=== PATIENT | female | born 1990 | race Two or more races ===

== ENCOUNTER 2019-02-08 06:39 | Inpatient (IN) | payer SELFPAY ==
[~2019-02-08] VITALS: Ht 156.2 cm; Wt 65.3 kg
[2019-02-08] VITALS (7 sets, daily range): BP systolic 99–125; BP diastolic 52–74
[2019-02-08] MEDS ORDERED: IV RINGERS,LACTATED 1000ML 1,000 ML IV SCH (06:41)
[2019-02-08] MEDS ORDERED: CITRIC ACID/SODIUM CITRATE 30 ML SOLUTION. PO ONE (07:00)
--- NOTE | 2019-02-08 07:39 | PDOC1 ---
OB - History Hx of Present Care: Good Care Ultrasounds: Normal mid trimester US Obstetrical Complications: None Medical Complications: None Past Family/Social History * Past Medical, Surgical, Family and Obstetric Histories reviewed from chart. Rubella: Immune RPR/VDRL: Negative GBS Status: Negative HBsAG: Negative OB - Chief Complaint & HPI Date of Admission: Date of Admission: Feb 08, 2019 at 06:39 Chief Complaint/History : 4 Para: 3 EGA: 39 Reason for admission: section Indication for : desires repeat Admission Nurse Assessment Rev: Yes OB - Admission Exam Physical Exam HEENT: Normal Heart: Regular Rate Lungs: Clear Abdomen: Gravid, Non tender, Soft Extremities: Edema Reflexes: Normal Cervical Dilatation: Fingertip Effacement: 25% Station: -3 Membranes: Intact Heart Rate: Normal Accelerations: Accelerations Present Decelerations: No decelerations Contractions on Admission: >10 Minutes Apart Text A: 39 wks IUP Previous c/s P: Admit for repeat c/s VERNELL AYALA Jr, MD Feb 08, 2019 07:39
[2019-02-08 07:41] LABS: HEMATOCRIT 35.9 % (36.0-47.0); HEMOGLOBIN 12.1 g/dL (12.0-15.5); RED BLOOD COUNT 3.89 x10^6/uL (3.50-5.40); RED CELL DISTRIBUTION WIDTH 14.1 % (11.5-14.5); WHITE BLOOD COUNT 9.9 x10^3/uL (4.0-11.0)
[2019-02-08] MEDS ORDERED: SIMETHICONE 80 MG TAB.CHEW PO PRN (07:45)
[2019-02-08] MEDS ORDERED: ONDANSETRON PF 4 MG/2 ML VIAL. IV PRN (07:45)
[2019-02-08] MEDS ORDERED: OXYTOCIN 30 UNIT/500 ML PREMIX 500 ML IV PRN (07:45)
[2019-02-08] MEDS ORDERED: DOCUSATE SODIUM 100 MG CAPSULE. PO PRN (07:45)
[2019-02-08] MEDS ORDERED: 0.9 % SODIUM CHLORIDE 10 ML DISP.SYRIN. IV PRN (07:45)
[2019-02-08] MEDS ORDERED: diphenhydrAMINE ORAL ELIXIR 12.5 MG/5 ML ML PO PRN (07:45)
[2019-02-08] MEDS ORDERED: ZOLPIDEM 5 MG TABLET. PO PRN (07:45)
[2019-02-08] MEDS ORDERED: MAG HYDROX/ALUMINUM HYD/SIMETH 30 ML ORAL.SUSP PO PRN (07:45)
[2019-02-08] MEDS ORDERED: MORPHINE PF 10 MG/10 ML AMPUL. ONE (09:01)
[2019-02-08] MEDS ORDERED: fentaNYL PF VIAL 100 MCG/2 ML VIAL ONE (09:01)
[2019-02-08] MEDS ORDERED: ePHEDrine PF IN SALINE 50 MG/10 ML SYRINGE. IV ONE (09:02)
[2019-02-08] MEDS ORDERED: OXYTOCIN 10 UNIT/ML VIAL. ONE (09:02)
[2019-02-08] MEDS ORDERED: DEXAMETHASONE SOD PHOS 4 MG/ML VIAL ONE (09:32)
--- NOTE | 2019-02-08 10:03 | PDOC4 ---
OB Operative Note Date: Feb 08, 2019 PRE OP DIAGNOSIS: Previoujs C- section POST OP DIAGNOSIS: Previous C- section OPERATION PERFORMED: R [facility] Surgeon Dr. Marrero Anesthesia: Regional (Spinal) Blood Loss 500 ml Specimen placenta and OB Findings: Position (Vertex), Sex (Female), (8/9), Weight (6 Lb 6 oz), Nuchal Cord (x1) Complications none Additional Remarks pt. stable. VERNELL MARRERO Jr, MD Feb 08, 2019 10:03
--- NOTE | 2019-02-08 10:38 | OP ---
DATE OF SURGERY: PREOPERATIVE DIAGNOSES: 1. A 39 weeks intrauterine . 2. Previous . POSTOPERATIVE DIAGNOSES: 1. A 39 weeks intrauterine . 2. Previous . PROCEDURE: Repeat low transverse section. SURGEON: Vernell Marrero MD [employer] AND CRM: Cassie. ANESTHESIA: Spinal. ESTIMATED BLOOD LOSS: 500 mL. COMPLICATIONS: None. FINDINGS: Viable female , Apgars 8 and 9, weight 6 pounds 6 ounces, nuchal cord x 1, 3-vessel cord, placenta delivered manually intact. SUMMARY: A 28-year-old female who presented at 39 weeks' gestation with history of for repeat section. She was counseled on risks, benefits and expectations and voiced clear understanding to proceed. DESCRIPTION OF PROCEDURE: The patient was taken to surgery suite and placed in dorsal supine position. She was prepped with ChloraPrep and draped in sterile fashion. After adequate anesthesia, Pfannenstiel skin incision was made with scalpel down to and through the fascia. Fascia was extended laterally using curved House scissors. The superior edge of the fascia was grasped with two Trell clamps and dissected free of the abdominal rectus muscles using blunt dissection along with Bovie cautery. The same process took place inferiorly. The abdominal rectus muscles were dissected bluntly at the midline. Peritoneum was grasped with 2 hemostats, entered sharply with Metzenbaum scissors. This incision was extended superiorly as well as inferiorly. The Shlomo ring retractor was placed. Bladder flap was created with Metzenbaum scissors and [place] pickups. A low transverse hysterotomy incision with scalpel down to the amniotic sac. Hysterotomy incision was extended laterally and superiorly digitally. Amniotomy was performed with Allis clamp. With the fundal pressure, the infant's head was delivered in a smooth atraumatic manner. Nuchal cord x 1 was visualized and reduced. With additional fundal pressure, the anterior shoulder was delivered followed by posterior shoulder and rest of female infant was delivered. was suctioned with bulb syringe orally and nasally. Umbilical cord was clamped twice and cut. Viable female infant was handed to waiting nursing staff. Umbilical cord blood was then obtained, 3-vessel cord. Placenta was delivered manually intact. The uterus was then exteriorized and cleared of clot and debris with a moist lap. Hysterotomy incision was then reapproximated using #1 Vicryl suture in a running locked fashion and imbricated layer of #1 Vicryl suture was utilized for better hemostasis. Uterus palpated firm. Fallopian tubes and ovaries appeared normal bilaterally. Posterior cul-de-sac was cleared of clot and debris with moist lap. Uterus was then returned to the abdomen. Pericolic gutters were cleared of clot and debris with moist lap. Hysterotomy incision was reviewed again and was hemostatic. The Shlomo ring retractor was removed. Peritoneum was reapproximated using #1 Vicryl suture in running fashion. Fascia was reapproximated using Stratafix in a running fashion. Skin was reapproximated using 4-0 Vicryl suture in subcuticular manner. The patient tolerated the procedure well and was taken to recovery room in stable condition. Sponge and needle count correct x 3. VERNELL MARRERO MD DR: MATTHEW/hayley JOB#: [id number] / [id number]
[2019-02-08] MEDS: IV RINGERS,LACTATED 1000ML 1,000 ML IV SCH ×3 (11:26→22:41)
[2019-02-08] MEDS: KETOROLAC 30 MG/ML VIAL. IV PRN ×2 (11:47→20:14)
[2019-02-08] MEDS: FERROUS SULFATE 325 MG TABLET. PO SCH (17:00)
[2019-02-09] VITALS: BP 91/49
[2019-02-09] MEDS: IV RINGERS,LACTATED 1000ML 1,000 ML IV SCH ×3 (01:38→22:41)
[2019-02-09 03:56] LABS: BASO % 0 % (0-3); EOS % 0 % (0-3); HEMATOCRIT 28.2 % (36.0-47.0); HEMOGLOBIN 9.5 g/dL (12.0-15.5); LYMPH # 2.1 x10^3/uL (1.0-4.8); LYMPH % 22 % (24-48); MEAN CORPUSCULAR HEMOGLOBIN 31 pg (25-35); MEAN CORPUSCULAR HGB CONC 34 g/dL (31-37); MEAN CORPUSCULAR VOLUME 93 fL (79-100); MONO # 1.1 x10^3/uL (0.0-1.1); MONO % 11 % (0-9); NEUT # 6.3 x10^3/uL (1.8-7.7); NEUT % 67 % (31-73); PLATELET COUNT 203 x10^3/uL (140-400); RED BLOOD COUNT 3.03 x10^6/uL (3.50-5.40); RED CELL DISTRIBUTION WIDTH 14.2 % (11.5-14.5); WHITE BLOOD COUNT 9.4 x10^3/uL (4.0-11.0)
[2019-02-09 04:00] VITALS: BP 95/40
[2019-02-09] MEDS: IBUPROFEN 400 MG TABLET. PO PRN ×2 (05:31→19:33)
[2019-02-09] MEDS: FERROUS SULFATE 325 MG TABLET. PO SCH ×2 (08:13→17:00)
[2019-02-09 09:06] VITALS: BP 89/47
[2019-02-09] MEDS: oxyCODONE/APAP 5/325 1 TAB TABLET PO PRN ×2 (12:18→18:29)
--- NOTE | 2019-02-09 13:05 | PDOC ---
OB Progress Note Date of Service 02/09/19 Time of Evaluation 1255 Notes Pt. feeling well. Pain controlled. No complaints. Lab Laboratory Tests Test 02/08/19 07:30 02/09/19 03:00 White Blood Count 9.9 x10^3/uL (4.0-11.0) 9.4 x10^3/uL (4.0-11.0) Red Blood Count 3.89 x10^6/uL (3.50-5.40) 3.03 x10^6/uL (3.50-5.40) Hemoglobin 12.1 g/dL (12.0-15.5) 9.5 g/dL (12.0-15.5) Hematocrit 35.9 % (36.0-47.0) 28.2 % (36.0-47.0) Mean Corpuscular Volume 92 fL (79-100) 93 fL (79-100) Mean Corpuscular Hemoglobin 31 pg (25-35) 31 pg (25-35) Mean Corpuscular Hemoglobin Concent 34 g/dL (31-37) 34 g/dL (31-37) Red Cell Distribution Width 14.1 % (11.5-14.5) 14.2 % (11.5-14.5) Platelet Count 261 x10^3/uL (140-400) 203 x10^3/uL (140-400) Treponema pallidum Antibody Nonreactive (Nonreactive) Neutrophils (%) (Auto) 67 % (31-73) Lymphocytes (%) (Auto) 22 % (24-48) Monocytes (%) (Auto) 11 % (0-9) Eosinophils (%) (Auto) 0 % (0-3) Basophils (%) (Auto) 0 % (0-3) Neutrophils # (Auto) 6.3 x10^3/uL (1.8-7.7) Lymphocytes # (Auto) 2.1 x10^3/uL (1.0-4.8) Monocytes # (Auto) 1.1 x10^3/uL (0.0-1.1) Eosinophils # (Auto) 0.0 x10^3/uL (0.0-0.7) Basophils # (Auto) 0.0 x10^3/uL (0.0-0.2) Laboratory Tests Test 02/09/19 03:00 White Blood Count 9.4 x10^3/uL (4.0-11.0) Red Blood Count 3.03 x10^6/uL (3.50-5.40) Hemoglobin 9.5 g/dL (12.0-15.5) Hematocrit 28.2 % (36.0-47.0) Mean Corpuscular Volume 93 fL (79-100) Mean Corpuscular Hemoglobin 31 pg (25-35) Mean Corpuscular Hemoglobin Concent 34 g/dL (31-37) Red Cell Distribution Width 14.2 % (11.5-14.5) Platelet Count 203 x10^3/uL (140-400) Neutrophils (%) (Auto) 67 % (31-73) Lymphocytes (%) (Auto) 22 % (24-48) Monocytes (%) (Auto) 11 % (0-9) Eosinophils (%) (Auto) 0 % (0-3) Basophils (%) (Auto) 0 % (0-3) Neutrophils # (Auto) 6.3 x10^3/uL (1.8-7.7) Lymphocytes # (Auto) 2.1 x10^3/uL (1.0-4.8) Monocytes # (Auto) 1.1 x10^3/uL (0.0-1.1) Eosinophils # (Auto) 0.0 x10^3/uL (0.0-0.7) Basophils # (Auto) 0.0 x10^3/uL (0.0-0.2) Medications Current Medications Ringer's Solution 1,000 ml @ 1,000 mls/hr Q1H IV Last administered on 02/08/19at 07:44; Start 02/08/19 at 06:41; Stop 02/08/19 at 07:40; Status DC Ringer's Solution 1,000 ml @ 125 mls/hr Q8H IV Last administered on 02/09/19at 01:38; Start 02/08/19 at 06:41 Cefazolin Sodium/ Dextrose 50 ml @ 100 mls/hr 1X ONCE IV ; Start 02/08/19 at 07:00; Stop 02/08/19 at 07:29; Status DC Citric Acid/ Sodium Citrate (Bicitra) 30 ml 1X ONCE PO ; Start 02/08/19 at 07:00; Stop 02/08/19 at 07:01; Status DC Sodium Chloride (Normal Saline Flush) 3 ml QSHIFT PRN IV AFTER MEDS AND BLOOD DRAWS; Start 02/08/19 at 07:45 Oxytocin/Sodium Chloride 500 ml @ 125 mls/hr CONT PRN IV EXCESSIVE POST- BLEEDING; Start 02/08/19 at 07:45; Stop 02/08/19 at 15:44; Status DC Ibuprofen (Motrin) 800 mg PRN Q4HRS PRN PO INFLAMMATION Last administered on 02/09/19at 05:31; Start 02/08/19 at 07:45 Ondansetron HCl (Zofran) 4 mg PRN Q6HRS PRN IV NAUSEA/VOMITING; Start 02/08/19 at 07:45 Docusate Sodium (Colace) 100 mg PRN BID PRN PO CONSTIPATION; Start 02/08/19 at 07:45 Al Hydroxide/Mg Hydroxide (Mylanta Plus Xs) 30 ml PRN Q4HRS PRN PO HEARTBURN / GAS; Start 02/08/19 at 07:45 Simethicone (Gas-X) 80 mg PRN AFTMEALHC PRN PO GAS / BLOATING; Start 02/08/19 at 07:45 Diphenhydramine HCl (Benadryl Oral Elixir) 12.5 mg PRN Q6HRS PRN PO ITCHING; Start 02/08/19 at 07:45 Ferrous Sulfate (Feosol) 325 mg BIDWMEALS PO Last administered on 02/09/19at 0 8:13; Start 02/08/19 at 08:00 Zolpidem Tartrate (Ambien) 5 mg PRN QHS PRN PO INSOMNIA, MAY REPEAT X1; Start 02/08/19 at 07:45 Oxycodone/ Acetaminophen (Percocet 5/325) 2 tab PRN Q4HRS PRN PO MODERATE PAIN, SEVERE PAIN Last administered on 02/09/19at 12:18; Start 02/08/19 at 07:45 Ketorolac Tromethamine (Toradol 30mg Vial) 30 mg PRN Q6HRS PRN IV PAIN Last administered on 02/08/19at 20:14; Start 02/08/19 at 07:45; Stop 02/13/19 at 07:44 Fentanyl Citrate (Fentanyl 2ml Vial) 100 mcg STK-MED ONCE .ROUTE ; Start 02/08/19 at 09:01; Stop 02/08/19 at 09:01; Status DC Morphine Sulfate (Morphine Preservative Free) 10 mg STK-MED ONCE .ROUTE ; Start 02/08/19 at 09:01; Stop 02/08/19 at 09:01; Status DC Ephedrine Sulfate (ePHEDrine PF IN SALINE SYRINGE) 50 mg STK-MED ONCE IV ; Start 02/08/19 at 09:02; Stop 02/08/19 at 09:02; Status DC Oxytocin (Pitocin) 10 unit STK-MED ONCE .ROUTE ; Start 02/08/19 at 09:02; Stop 02/08/19 at 09:03; Status DC Dexamethasone Sodium Phosphate (Decadron) 4 mg STK-MED ONCE .ROUTE ; Start 02/08/19 at 09:32; Stop 02/08/19 at 09:32; Status DC Exam Abd: soft, mild tenderness, fundus firm Incision site: clean, dry and intact Assessment POD#1 s/p repeat c/s Plan of Care: Continue current Tx, Mgmt VERNELL AYALA Jr, MD Feb 09, 2019 13:04
[2019-02-09 20:08] VITALS: BP 102/68
[2019-02-09 23:01] VITALS: BP 106/69
[2019-02-10] MEDS: oxyCODONE/APAP 5/325 1 TAB TABLET PO PRN ×3 (04:56→23:45)
[2019-02-10 05:22] VITALS: BP 109/62
[2019-02-10 07:30] VITALS: BP 104/66
[2019-02-10] MEDS: FERROUS SULFATE 325 MG TABLET. PO SCH ×2 (08:37→17:50)
[2019-02-10 12:00] VITALS: BP 101/63
[2019-02-10] MEDS: IBUPROFEN 400 MG TABLET. PO PRN (15:00)
[2019-02-10 16:10] VITALS: BP 114/48
--- NOTE | 2019-02-10 17:15 | PDOC ---
OB Progress Note Date of Service 02/10/19 Time of Evaluation 2975 Notes Pt. feeling well. No complaints. Lab Laboratory Tests Test 02/09/19 03:00 White Blood Count 9.4 x10^3/uL (4.0-11.0) Red Blood Count 3.03 x10^6/uL (3.50-5.40) Hemoglobin 9.5 g/dL (12.0-15.5) Hematocrit 28.2 % (36.0-47.0) Mean Corpuscular Volume 93 fL (79-100) Mean Corpuscular Hemoglobin 31 pg (25-35) Mean Corpuscular Hemoglobin Concent 34 g/dL (31-37) Red Cell Distribution Width 14.2 % (11.5-14.5) Platelet Count 203 x10^3/uL (140-400) Neutrophils (%) (Auto) 67 % (31-73) Lymphocytes (%) (Auto) 22 % (24-48) Monocytes (%) (Auto) 11 % (0-9) Eosinophils (%) (Auto) 0 % (0-3) Basophils (%) (Auto) 0 % (0-3) Neutrophils # (Auto) 6.3 x10^3/uL (1.8-7.7) Lymphocytes # (Auto) 2.1 x10^3/uL (1.0-4.8) Monocytes # (Auto) 1.1 x10^3/uL (0.0-1.1) Eosinophils # (Auto) 0.0 x10^3/uL (0.0-0.7) Basophils # (Auto) 0.0 x10^3/uL (0.0-0.2) Medications Current Medications Ringer's Solution 1,000 ml @ 1,000 mls/hr Q1H IV Last administered on 02/08/19at 07:44; Start 02/08/19 at 06:41; Stop 02/08/19 at 07:40; Status DC Ringer's Solution 1,000 ml @ 125 mls/hr Q8H IV Last administered on 02/09/19at 01:38; Start 02/08/19 at 06:41; Stop 02/10/19 at 03:52; Status DC Cefazolin Sodium/ Dextrose 50 ml @ 100 mls/hr 1X ONCE IV ; Start 02/08/19 at 07:00; Stop 02/08/19 at 07:29; Status DC Citric Acid/ Sodium Citrate (Bicitra) 30 ml 1X ONCE PO ; Start 02/08/19 at 07:00; Stop 02/08/19 at 07:01; Status DC Sodium Chloride (Normal Saline Flush) 3 ml QSHIFT PRN IV AFTER MEDS AND BLOOD DRAWS; Start 02/08/19 at 07:45 Oxytocin/Sodium Chloride 500 ml @ 125 mls/hr CONT PRN IV EXCESSIVE POST- BLEEDING; Start 02/08/19 at 07:45; Stop 02/08/19 at 15:44; Status DC Ibuprofen (Motrin) 800 mg PRN Q4HRS PRN PO INFLAMMATION Last administered on 02/10/19at 15:00; Start 02/08/19 at 07:45 Ondansetron HCl (Zofran) 4 mg PRN Q6HRS PRN IV NAUSEA/VOMITING; Start 02/08/19 at 07:45 Docusate Sodium (Colace) 100 mg PRN BID PRN PO CONSTIPATION Last administered on 02/10/19at 10:41; Start 02/08/19 at 07:45 Al Hydroxide/Mg Hydroxide (Mylanta Plus Xs) 30 ml PRN Q4HRS PRN PO HEARTBURN / GAS; Start 02/08/19 at 07:45 Simethicone (Gas-X) 80 mg PRN AFTMEALHC PRN PO GAS / BLOATING; Start 02/08/19 at 07:45 Diphenhydramine HCl (Benadryl Oral Elixir) 12.5 mg PRN Q6HRS PRN PO ITCHING; Start 02/08/19 at 07:45 Ferrous Sulfate (Feosol) 325 mg BIDWMEALS PO Last administered on 02/10/19at 08:37; Start 02/08/19 at 08:00 Zolpidem Tartrate (Ambien) 5 mg PRN QHS PRN PO INSOMNIA, MAY REPEAT X1; Start 02/08/19 at 07:45 Oxycodone/ Acetaminophen (Percocet 5/325) 2 tab PRN Q4HRS PRN PO MODERATE PAIN, SEVERE PAIN Last administered on 02/10/19at 10:41; Start 02/08/19 at 07:45 Ketorolac Tromethamine (Toradol 30mg Vial) 30 mg PRN Q6HRS PRN IV PAIN Last administered on 02/08/19at 20:14; Start 02/08/19 at 07:45; Stop 02/10/19 at 03:52; Status DC Fentanyl Citrate (Fentanyl 2ml Vial) 100 mcg STK-MED ONCE .ROUTE ; Start 02/08/19 at 09:01; Stop 02/08/19 at 09:01; Status DC Morphine Sulfate (Morphine Preservative Free) 10 mg STK-MED ONCE .ROUTE ; Start 02/08/19 at 09:01; Stop 02/08/19 at 09:01; Status DC Ephedrine Sulfate (ePHEDrine PF IN SALINE SYRINGE) 50 mg STK-MED ONCE IV ; St art 02/08/19 at 09:02; Stop 02/08/19 at 09:02; Status DC Oxytocin (Pitocin) 10 unit STK-MED ONCE .ROUTE ; Start 02/08/19 at 09:02; Stop 02/08/19 at 09:03; Status DC Dexamethasone Sodium Phosphate (Decadron) 4 mg STK-MED ONCE .ROUTE ; Start 02/08/19 at 09:32; Stop 02/08/19 at 09:32; Status DC Exam Abd: soft, mild tenderness, fundus firm Incision site: clean, dry and intact Assessment POD#2 s/p repeat c/s Plan of Care: Continue current Tx, Mgmt VERNELL AYALA Jr, MD Feb 10, 2019 17:15
[2019-02-10 20:00] VITALS: BP 94/43
[2019-02-11 06:28] VITALS: BP 102/62
[2019-02-11] MEDS: FERROUS SULFATE 325 MG TABLET. PO SCH (08:14)
[2019-02-11] MEDS: oxyCODONE/APAP 5/325 1 TAB TABLET PO PRN ×2 (08:14→15:21)
[2019-02-11 10:45] VITALS: BP 102/66
--- NOTE | 2019-02-11 11:34 | PDOC3 ---
OB DISCHARGE SUMMARY DATE OF ADMISSION: 02/08/19 DATE OF DISCHARGE: 02/11/19 REASON FOR ADMISSION: section INTRAPARTUM PROCEDURES: : Low Cerv Trans DISCHARGE DIAGNOSIS: Term Delivered DISCHARGE INFORMATION: Activity (ad kyrie), Diet (regular), Instructions (pelvic rest x 6 wks, no driving x 2 wks, no lifting > 20 lbs. x 4 wks) HOSPITAL COURSE Term gestation delivered section without complications. VERNELL AYALA Jr, MD Feb 11, 2019 11:34
[2019-02-11] MEDS ORDERED: OXYC1TAB15 PO (11:37)
[2019-02-11] MEDS ORDERED: IBUP-1027 PO (11:37)
[2019-02-11] MEDS ORDERED: DOCU100C28 PO (11:37)
--- NOTE | 2019-02-11 11:37 | DISCH ---
DISCHARGE INSTRUCTIONS Condition on Discharge Condition on Discharge: Stable Activity After Discharge Activity Instructions for Disc: Activity as tolerated Lifting Instructions after Dis: No heavy lifting Driving Instructions after Dis: No driving for 2 weeks Diet after Discharge Diet after Discharge: Regular Contacting the DRLucas after DC Call your doctor for: Concerns you may have Follow-Up Follow up with: Dr. Marrero in 2 wks VERNELL MARRERO Jr, MD Feb 11, 2019 11:37
[2019-02-11] MEDS: IBUPROFEN 400 MG TABLET. PO PRN (14:53)
[2019-02-11 15:15] VITALS: BP 111/77
== END 2019-02-11 16:30 | disposition home or self-care (01) | DRG 788 ==
LOC: 3 SO LND 06:39 → 3 NORTH 15:50
PROVIDERS: ADMIT Obstetrics & Gynecology; ATTEND Obstetrics & Gynecology
PROC: 10D00Z1 Extraction of Products of Conception, Low, Open Approach (ICD-10-PCS; principal; 2019-02-08)
DX: O34.211 Maternal care for low transverse scar from previous cesarean delivery (principal); O69.81X0 Labor and delivery complicated by cord around neck, without compression, not applicable or unspecified; Z3A.39 39 weeks gestation of pregnancy; Z37.0 Single live birth
CPT/HCPCS: 36415; 85025; 85027; 86592; 86850; 86900; 86901; J0171; J1100; J1885; J2274; J2590; J3010; J7120; G0378

== ENCOUNTER 2020-11-28 03:31 | Emergency (ER) | payer SELFPAY ==
[~2020-11-28] VITALS: Ht 160 cm; Wt 57.0 kg
[~2020-11-28 03:31] MED LIST: DOCU100C28 PO; IBUP-1027 PO; OXYC1TAB15 PO
--- NOTE | 2020-11-28 04:15 | ED.ADGEN ---
Past Medical History Past Surgical History: Smoking Status: Never Smoker Alcohol Use: None General Adult EDM: Chief Complaint: UPPER EXTREMITY PAIN HPI: HPI: Patient is a 30 year old female coming in for right hand tingling and pain. Patient states she woke up 2 days ago with the pain. Denies any trauma. Describes it as tingling in her first 3 fingers and palm. 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 She is right-handed. Patient complains of swelling to her hands. None the past medical history is not on her Covid vaccines but Review of Systems: Review of Systems: All other systems within normal limits except for as noted in the HPI Current Medications: Current Medications Medications (Trade) Dose Ordered Sig/Rosales Start Time Stop Time Status Last Admin Dose Admin Fentanyl Citrate (Fentanyl 2ml Vial) 75 mcg 1X ONCE 11/28/20 04:30 11/28/20 04:31 DC 11/28/20 04:35 75 MCG Allergies: Allergies: Allergies Coded Allergies Type Severity Reaction Last Updated Verified No Known Drug Allergies 02/08/19 No Physical Exam: PE: Constitutional: Well developed, well nourished, no acute distress, non-toxic appearance. [] HENT: Normocephalic, atraumatic, bilateral external ears normal, nose normal. [] Eyes: PERRLA, conjunctiva normal, no discharge. [] Neck: No rigidity, supple, no stridor. [] Cardiovascular: Regular rate and rhythm, brisk cap refill [] Lungs & Thorax: Non labored symmetric respirations, no tachypnea or respiratory distress [] Abdomen: Soft, nondistended. Skin: Warm, dry, no erythema, no rash. [] Back: Unremarkable Extremities: No deformities, range of motion grossly intact, no lower extremity edema. Slight swelling of right hand. Range of motion grossly intact but exam difficult due to patient lack of cooperation. Positive Tinel and Phalen's test [] Neurologic: Alert and oriented X 3, no focal deficits noted. Sensation in fingertips intact but increased paresthesias to touch on first third finger [] Psychologic: Affect normal, judgement normal, mood normal. [] Current Patient Data: Labs: Laboratory Tests Test 11/28/20 04:17 White Blood Count 6.9 x10^3/uL (4.0-11.0) Red Blood Count 4.54 x10^6/uL (3.50-5.40) Hemoglobin 14.3 g/dL (12.0-15.5) Hematocrit 41.4 % (36.0-47.0) Mean Corpuscular Volume 91 fL (79-100) Mean Corpuscular Hemoglobin 32 pg (25-35) Mean Corpuscular Hemoglobin Concent 35 g/dL (31-37) Red Cell Distribution Width 13.3 % (11.5-14.5) Platelet Count 244 x10^3/uL (140-400) Neutrophils (%) (Auto) 81 % (31-73) H Lymphocytes (%) (Auto) 13 % (24-48) L Monocytes (%) (Auto) 7 % (0-9) Eosinophils (%) (Auto) 0 % (0-3) Basophils (%) (Auto) 0 % (0-3) Neutrophils # (Auto) 5.6 x10^3/uL (1.8-7.7) Lymphocytes # (Auto) 0.9 x10^3/uL (1.0-4.8) L Monocytes # (Auto) 0.5 x10^3/uL (0.0-1.1) Eosinophils # (Auto) 0.0 x10^3/uL (0.0-0.7) Basophils # (Auto) 0.0 x10^3/uL (0.0-0.2) Sodium Level 137 mmol/L (136-145) Potassium Level 3.4 mmol/L (3.5-5.1) L Chloride Level 103 mmol/L (98-107) Carbon Dioxide Level 25 mmol/L (21-32) Anion Gap 9 (6-14) Blood Urea Nitrogen 13 mg/dL (7-20) Creatinine 0.8 mg/dL (0.6-1.0) Estimated GFR (Cockcroft-Gault) 83.1 BUN/Creatinine Ratio 16 (6-20) Glucose Level 109 mg/dL (70-99) H Calcium Level 8.8 mg/dL (8.5-10.1) Phosphorus Level 2.3 mg/dL (2.6-4.7) L Magnesium Level 2.0 mg/dL (1.8-2.4) Total Bilirubin 0.3 mg/dL (0.2-1.0) Aspartate Amino Transferase (AST) 20 U/L (15-37) Alanine Aminotransferase (ALT) 19 U/L (14-59) Alkaline Phosphatase 87 U/L (46-116) Total Protein 7.7 g/dL (6.4-8.2) Albumin 3.5 g/dL (3.4-5.0) Albumin/Globulin Ratio 0.8 (1.0-1.7) L Serum Test, Qualitative Negative (NEG) Laboratory Tests 11/28/20 04:17 Laboratory Tests 11/28/20 04:17 Vital Signs: Vital Signs Date Time Temp Pulse Resp B/P (MAP) Pulse Ox O2 Delivery O2 Flow Rate FiO2 11/28/20 05:15 95 16 116/65 (82) 96 Room Air 11/28/20 03:54 98.3 98.3 EKG: EKG: [] Heart Score: C/O Chest Pain: No Risk Factors: Risk Factors: DM, Current or recent (<one month) smoker, HTN, HLP, family history of CAD, obesity. Risk Scores: Score 0 - 3: 2.5% MACE over next 6 weeks - Discharge Home Score 4 - 6: 20.3% MACE over next 6 weeks - Admit for Clinical Observation Score 7 - 10: 72.7% MACE over next 6 weeks - Early Invasive Strategies Radiology/Procedures: Radiology/Procedures: [] Course & Med Decision Making: Course & Med Decision Making Pertinent Labs and Imaging studies reviewed. (See chart for details) [] Dragon Disclaimer: Dragon Disclaimer: This electronic medical record was generated, in whole or in part, using a voice recognition dictation system. Departure Departure Impression: Primary Impression: Carpal tunnel syndrome, right Disposition: 01 HOME / SELF CARE / HOMELESS Condition: STABLE Referrals: TYREL JIMENES Jr. DO Patient Instructions: Carpal Tunnel Syndrome Scripts Hydrocodone Bit/Acetaminophen (HYDROCODONE-APAP 5-325 ) 1 Tab Tablet 1 TAB PO PRN Q6HRS PRN for PAIN for 3 Days, #12 TAB 0 Refills Prov: YING SINGER MD 11/28/20 YING SINGER MD Nov 28, 2020 04:15
[2020-11-28 04:25] LABS: BASO % 0 % (0-3); EOS % 0 % (0-3); HEMATOCRIT 41.4 % (36.0-47.0); HEMOGLOBIN 14.3 g/dL (12.0-15.5); LYMPH # 0.9 x10^3/uL (1.0-4.8); LYMPH % 13 % (24-48); MEAN CORPUSCULAR HEMOGLOBIN 32 pg (25-35); MEAN CORPUSCULAR HGB CONC 35 g/dL (31-37); MEAN CORPUSCULAR VOLUME 91 fL (79-100); MONO # 0.5 x10^3/uL (0.0-1.1); MONO % 7 % (0-9); NEUT # 5.6 x10^3/uL (1.8-7.7); NEUT % 81 % (31-73); PLATELET COUNT 244 x10^3/uL (140-400); RED BLOOD COUNT 4.54 x10^6/uL (3.50-5.40); RED CELL DISTRIBUTION WIDTH 13.3 % (11.5-14.5); WHITE BLOOD COUNT 6.9 x10^3/uL (4.0-11.0)
[2020-11-28] MEDS ORDERED: fentaNYL PF VIAL 100 MCG/2 ML VIAL IVP ONE (04:30)
--- NOTE | 2020-11-28 04:35 | RAD ---
Right hand x-rays 3 views HISTORY: Right hand pain and swelling. FINDINGS: No fracture. No dislocation. No arthritic change. The soft tissues are unremarkable. IMPRESSION: Normal exam. Electronically signed by: Diego Fernandez MD (11/28/2020 4:32 AM) [facility]
[2020-11-28 04:43] LABS: CALCIUM 8.8 mg/dL (8.5-10.1); CREATININE 0.8 mg/dL (0.6-1.0); GFR 83.1; POTASSIUM 3.4 mmol/L (3.5-5.1)
[2020-11-28 04:45] LABS: PREG TEST PT QUAL NEGATIVE (NEG)
[2020-11-28 04:49] LABS: ALBUMIN 3.5 g/dL (3.4-5.0); ALBUMIN/GLOBULIN RATIO 0.8 (1.0-1.7); PHOSPHORUS 2.3 mg/dL (2.6-4.7); TOTAL BILIRUBIN 0.3 mg/dL (0.2-1.0); TOTAL PROTEIN 7.7 g/dL (6.4-8.2)
--- NOTE | 2020-11-28 05:31 | RAD ---
Right upper extremity venous duplex Doppler ultrasound HISTORY: Right arm pain. FINDINGS: No DVT of the right internal jugular vein, subclavian vein or axillary vein with patent col or Doppler blood flow. No DVT of the right brachial veins, ulnar veins and radial veins with patent c olor Doppler blood flow and augmentation of blood flow, and compressibility of the brachial veins. No DVT with compressibility of the right basilic vein and cephalic vein with patent color Doppler blood flow. IMPRESSION: Negative right upper extremity for DVT. Electronically signed by: Diego Fernandez MD (11/28/2020 5:29 AM) [facility]
[2020-11-28] MEDS ORDERED: HYDR-2761 PO (05:41)
[2020-11-28 05:43] VITALS: BP 116/73
== END 2020-11-28 05:55 | disposition home or self-care (01) ==
LOC: ER 03:31
DX: G56.01 Carpal tunnel syndrome, right upper limb (principal)
CPT/HCPCS: 36415; 73130; 80053; 83735; 84100; 84703; 85025; 93971; 96374; 99285; J3010